=== PATIENT | female | born 1965 | race Two or more races ===

== ENCOUNTER 2020-10-16 05:54 | Day surgery (SDC) | payer OTHER ==
[~2020-10-16 05:54] MED LIST: CLONAZEPAM2 MG PO; TREXIMET 85-501 EACH PO
== END 2020-10-16 19:45 | disposition home or self-care (01) ==
LOC: CIR.AMB 05:54
PROVIDERS: ATTEND Orthopaedic Surgery Hand Surgery
DX: S62.390A Other fracture of second metacarpal bone, right hand, initial encounter for closed fracture (principal); Z20.822 Contact with and (suspected) exposure to COVID-19

== ENCOUNTER 2022-03-25 06:19 | Day surgery (SDC) | payer OTHER ==
[~2022-03-25] VITALS: Ht 160 cm; Wt 71.7 kg
[~2022-03-25 06:19] MED LIST changes: +FOSAMA PO; +NORFLEX PO; +PEPCID PO; +ZOLOF PO
== END 2022-03-25 12:40 | disposition home or self-care (01) ==
LOC: CIR.AMB 06:19
PROVIDERS: ATTEND Orthopaedic Surgery Hand Surgery
DX: M77.8 Other enthesopathies, not elsewhere classified (principal); Z20.822 Contact with and (suspected) exposure to COVID-19; Z88.2 Allergy status to sulfonamides; Z88.8 Allergy status to other drugs, medicaments and biological substances; Z86.16 Personal history of COVID-19